=== PATIENT | male | born 1965 | race Caucasian/White ===

== ENCOUNTER 2019-05-01 11:43 | Emergency (ER) | payer OTHER, SELFPAY ==
--- NOTE | 2019-05-01 11:56 | DI.RAD.S_ITS ---
PROCEDURE: XR FOOT LT MIN 3V INDICATIONS: pain TECHNIQUE: 3 views of the foot were acquired. COMPARISON: None. FINDINGS: Bones: No fractures or dislocations. No suspicious bony lesions. Soft tissues: No tibiotalar joint effusion. Achilles tendon appears normal. IMPRESSION: No visualized acute fracture or dislocation. However, if clinical concern and/or pain persist, short interval imaging followup in 7-10 days is recommended, as occult injury cannot be definitively excluded. Dictated by: Tamika Higgins M.D. on 05/01/2019 at 11:57 Approved by: Tamika Higgins M.D. on 05/01/2019 at 11:58
[2019-05-01 13:02] VITALS: BP 131/82; PULSE 60; RESP 16; TEMP 36.7; O2SAT 98
--- NOTE | 2019-05-01 13:38 | ED_ITS ---
HPI - Extremity Injury (Lower) <LIZZY Quick - Last Filed: 05/01/19 23:03> General Chief Complaint: Extremity Injury, Lower Stated Complaint: Left foot, injured at work 04/01/19,not healing Source: patient Mode of arrival: Ambulatory Limitations: no limitations History of Present Illness HPI Narrative: This is a 53-year-old male, prior smoker, who presents to ED with left dorsal foot pain since 04/01/2019 when he injured his foot during work. 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 He was initially evaluated at [facility] Emergency room was informed no fracture. Since then he has been experiencing intermittent left foot pain and swelling especially after even a short distance of walking and with gravity. He has been taking ibuprofen 600 mg once a day as instructed for discomfort and pain. Patient denies gout, re-injury, tingling or numbness. Related Data Allergies Allergy/AdvReac Type Severity Reaction Status Date / Time No Known Drug Allergies Allergy Verified 05/01/19 12:08 Review of Systems <LIZZY Quick - Last Filed: 05/01/19 23:03> Review of Systems Narrative: General: Denies fever, chills, fatigue, malaise, sweats. HEENT: Denies sinus pain, ear pain, sore throat, difficulty swallowing, dizziness. Respiratory: Denies dyspnea, cough, wheezing, hemoptysis, sputum. Cardiovascular: Denies chest pain, palpitations, orthopnea, edema. Gastrointestinal: Denies nausea, vomiting, abdominal pain, diarrhea, constipation, melena. : Denies dysuria, frequency, incontinence, hematuria, urinary retention. Musculoskeletal: See HPI Skin: Denies rash, skin lesions, or other. Neurologic: Denies weakness, headache, numbness, change in speech, confusion, seizures, incoordination. Psychiatric: No concerning psychosocial issues. 12-point review of systems is negative except for those stated above. Patient History <LIZZY Quick - Last Filed: 05/01/19 23:03> Medical History Herniated disc (Acute) Surgical History H/O left wrist surgery (Acute) History of surgery on right wrist (Acute) Status post cervical spinal fusion (Acute) Social History (Updated 05/01/19 @ 22:54 by LIZZY Quick) Smoking Status: Former smoker Substance Use Type: does not use Exam <LIZZY Quick - Last Filed: 05/01/19 23:03> Narrative Exam Narrative: General appearance: well developed, well nourished, in no acute distress. Head: normocephalic, atraumatic, no scalp lesions, non-tender. Eye: pupil equal, round. EOMI. Nose: nares patent. Oral: mucosa moist. Neck/Thyroid: neck supple, full range of motion, no visible masses. Skin: no suspicious rashes, lesions over visible areas. Warm and dry. Heart: no clubbing, no cyanosis, no edema. Lungs: Breathing even and unlabored. No stridor. No accessory muscles used. Chest: normal shape and expansion. Abdomen: non-obese, non-distended. Neurologic: alert and oriented. Cognitive exam, HEALTH AND SAFETY COORDINATOR and PNS grossly intact on informal exam. Psych: good eye contact, normal affect. Initial Vital Signs Initial Vital Signs: Vital Signs Temperature 98.0 F 05/01/19 13:02 Pulse Rate 60 05/01/19 13:02 Respiratory Rate 16 05/01/19 13:02 Blood Pressure 131/82 05/01/19 13:02 Pulse Oximetry 98 05/01/19 13:02 Extrem General: normal to inspection, capillary refill normal, no joint enlargement and no pedal edema Left lower extremity: foot Details: normal capillary refill, normal to inspection, tenderness Location: of the dorsal foot, toes with normal ROM, no edema, vascular exam Details: dorsalis pedis pulse present, tendon exam ( Discomfort with AROM of plantar/dorsal flexion) and motor-sensory exam Details: light-touch normal; no unusual warmth and no crepitus <Olivia Aguayo MD - Last Filed: 05/03/19 06:59> Initial Vital Signs Initial Vital Signs: Vital Signs Temperature 98.0 F 05/01/19 13:02 Pulse Rate 60 05/01/19 13:02 Respiratory Rate 16 05/01/19 13:02 Blood Pressure 131/82 05/01/19 13:02 Pulse Oximetry 98 05/01/19 13:02 Course <LIZZY Quick - Last Filed: 05/01/19 23:03> Orders Ordered: ED Orders 05/01/19 11:56 XR foot LT min 3V Stat Vital Signs Vital signs: Vital Signs - 8 hr 05/01/19 13:02 Temperature 98.0 F Pulse Rate 60 Respiratory Rate 16 Blood Pressure [Left Arm] 131/82 Pulse Oximetry 98 <Olivia Aguayo MD - Last Filed: 05/03/19 06:59> Orders Ordered: ED Orders 05/01/19 11:56 XR foot LT min 3V Stat Vital Signs Vital signs: Vital Signs - 8 hr 05/01/19 13:02 Temperature 98.0 F Pulse Rate 60 Respiratory Rate 16 Blood Pressure [Left Arm] 131/82 Pulse Oximetry 98 MDM - Extremity Injury (Lower) <LIZZY Quick - Last Filed: 05/01/19 23:03> Differential Diagnosis Differential diagnosis: Likely other (foot fracture, foot sprain/strain) Medical Records Attestation: I reviewed the patient's medical records. Imaging Data XR-Foot L: Radiologist's impression: [place] [address] XRay Report Signed Patient: [facility]#: [id number] : 1965Acct:[id number] Age/Sex: 53 / MDate of Service: 05/01/19 Loc: ED Accession Number: [id number] Procedure: XR foot LT min 3V Ordering Provider: Olivia Aguayo MD PROCEDURE: XR FOOT LT MIN 3V INDICATIONS: pain TECHNIQUE: 3 views of the foot were acquired. COMPARISON: None. FINDINGS: Bones: No fractures or dislocations. No suspicious bony lesions. Soft tissues: No tibiotalar joint effusion. Achilles tendon appears normal. IMPRESSION: No visualized acute fracture or dislocation. However, if clinical concern and/or pain persist, short interval imaging followup in 7-10 days is recommended, as occult injury cannot be definitively excluded. Dictated by: Tamika Higgins M.D. on 05/01/2019 at 11:57 Approved by: Tamika Higgins M.D. on 05/01/2019 at 11:58 MDM Narrative Medical decision making narrative: This is a 53-year-old male who presents to ED to follow-up on his left dorsal foot pain after he initially injured on 04/01/2019 at work and to re-initiate L and I evaluation and claim. He was initially evaluated at [facility] after the injury. Patient reports intermittent but ongoing discomfort and swelling on affected food with ambulation and movement. X-ray test does not show any acute findings such as fracture or dislocation today. Physical exam was unremarkable. RICE therapy was discussed with the patient. Patient offered Mitch wrap for immobilization and compression but he elects to use his own which she has at home. Patient advised to increase Motrin intake up to 3 times a day from once a day for inflammation and pain. If pain persists patient advised to follow up with physical therapy which could be arranged by primary care physician or L&I provider. Patient verbalized understanding and agrees with the treatment plan and L&I claim form has been completed. Discharge Plan Departure Patient Disposition: Home Clinical Impression: Sprain of foot, left Qualifiers: Encounter type: initial encounter Qualified Code(s): S93.602A - Unspecified sprain of left foot, initial encounter Discharge Date/Time: 05/01/19 13:51 Instructions: DI for Foot Sprain Activity Restrictions/Additional Instructions: You have been diagnosed with [left dorsal foot sprain/strain which resulted from work injury on April 11, 2019. Today's x-ray test acute findings such as fractures or dislocation]. What to do: *Take your medications as directed. You can take ibuprofen 600-800 mg up to 3 times a day with food for pain and inflammation. You can also add Tylenol 650- 1000 mg, up to total 4000 mg in 24 hour for pain. Please use Mitch wrap for comfort and support that you have at home. Please use ?RICE? therapy such as Rest, Ice, Compression/Spliint/Mitch wrap, and Elevation above the chest level. Ice the area for next 24-48 hrs after the initial injury and as needed if you n otice swelling. Please try to avoid getting swelling to the affected site since this may cause increasing pain. *Follow up with your primary care provider in 2-3 days, call for an appointment. Let them know you were seen in the ED and that we asked you to be seen in follow up. *Return to ED if you have any new, worsening, or concerning symptoms, such as [chest pain, breathing difficulty, unable to tolerate fluids, weakness and numbness to affected foot or any acute concerns]. Referrals: [facility] [Outside]
== END 2019-05-01 13:51 | disposition home or self-care (01) ==
PROVIDERS: Emergency Provider Nurse Practitioner Family; Family Provider Family Medicine
DX: S93.602A Unspecified sprain of left foot, initial encounter (principal); W22.8XXA Striking against or struck by other objects, initial encounter; Y99.0 Civilian activity done for income or pay
CPT/HCPCS: 73630; 99282; 99283

== ENCOUNTER → 2019-08-20 13:53 | Outpatient (CLI) | payer OTHER, SELFPAY ==
--- NOTE | 2019-08-20 | DI.MRI.S_ITS ---
PROCEDURE: MRFOOT LT WO CON INDICATIONS: Unspecified sprain of left foot, initial encounter TECHNIQUE: Noncontrast sagittal T1 spin echo and T2 fast spin echo with fat saturation, long-axis T1 spin echo and T2 fast spin echo with fat saturation, short-axis T1 spin echo and T2 fast spin echo with fat saturation through the forefoot. COMPARISON: [facility], CR, XR FOOT LT MIN 3V, 05/01/2019, 11:55. FINDINGS: Image quality: Excellent. Bones and joints: No bone marrow contusions or metatarsal stress fractures. There is first MTP joint degeneration with subchondral signal changes and spurring. Marrow signal changes present in the fifth metatarsal head could also be degenerative although cannot exclude erosion and this could be further assessed with contrast-enhanced study is clinically warranted. The sesamoid bones appear in expected positions, without internal edema. No metatarsophalangeal joint degeneration. No intraosseous lesions. Soft tissues: The visualized plantar foot muscles demonstrate normal signal and bulk. Visualized flexor and extensor tendons appear intact, without tenosynovitis. The distal insertions of the peroneus brevis and longus tendons appear intact. The principal Lisfranc ligament appears intact. No soft tissue ganglion cysts or bursal fluid collections. Sagittal images demonstrate no evidence for plantar plate tears. IMPRESSION: Subacute or chronic (radiographically occult) fracture involving the base of the third metatarsal, with mild marrow edema. Further assessment could be performed with dedicated CT as clinically necessary. Chronic degenerative changes as above Dictated by: Daryl Cervantes M.D. on 08/20/2019 at 15:17 Approved by: Daryl Cervantes M.D. on 08/20/2019 at 15:44
== END ==
PROVIDERS: Family Provider Family Medicine; PCP Family Medicine; Referring Provider Podiatrist; Visit Provider Podiatrist
DX: S92.332A Displaced fracture of third metatarsal bone, left foot, initial encounter for closed fracture (principal); S93.602A Unspecified sprain of left foot, initial encounter; M19.072 Primary osteoarthritis, left ankle and foot; X58.XXXA Exposure to other specified factors, initial encounter
CPT/HCPCS: 73718